=== PATIENT | female | born 1990 | race Caucasian/White ===

== ENCOUNTER → 2019-09-08 13:58 | Outpatient (CLI) | payer OTHER, SELFPAY ==
--- NOTE | 2019-09-08 | DI.ECHO.S_ITS ---
[facility]---------+ [facility] +---------+ : : [address] : [address] : : : : [id number] : : : : Phone: [phone] +---------+ Echocardiogram Report + + :Name: RONNIE ALEXIS Study Date: 09/08/2019 Height: 73 in : :[facility] Weight: 172 lb : : Gender: Female BSA: 2.0 m2 : :: 1990 Age: 29 yrs BP: 122/76 mmHg: :Reason For Study: MURMUR : : Performed By: Tem Staff : :Referring: LI LINARES D : + + Interpretation Summary 1) Normal left ventricular size, thickness, wall motion, and systolic function (EF 60-65%). 2) Normal right ventricular size and function. 3) Aortic valve is opening well but it is not adequately visualized to rule out bicuspid aortic valve. No valvular stenosis or regurgitation present. Consider repeat Echo in 5 years. 4) No prior Echo available for comparison. Procedure: A two-dimensional transthoracic echocardiogram with color flow and Doppler was performed. The study quality was technically adequate. There is no prior echocardiogram noted for this patient. The patient was in normal sinus rhythm during the exam. Left Ventricle: The left ventricle is normal in size. There is normal left ventricular wall thickness. Left ventricular systolic function is normal. The ejection fraction is estimated to be 55-60%. Left ventricular wall motion is normal. Right Ventricle: The right ventricle is normal in size and function. Atria: The left atrial size is normal. Right atrial size is normal. The interatrial septum is intact with no evidence for an atrial septal defect. Mitral Valve: The mitral valve leaflets appear normal. There is no evidence of stenosis, fluttering, or prolapse. There is mild mitral regurgitation. Aortic Valve: The aortic valve opens well. The aortic valve is grossly normal. There is no aortic valve stenosis. No aortic regurgitation is present. Tricuspid Valve: The tricuspid valve is normal in structure and function. There is trace tricuspid regurgitation. The right ventricular systolic pressure is estimated to be at least 23 mmHg based on an estimated right atrial pressure of 8 mm Hg. Pulmonic Valve: The pulmonic valve is normal in structure and function. There is trace pulmonic regurgitation. Great Vessels: The aortic root is normal size. The dimensions of the ascending aorta are normal. The pulmonary artery is normal size. The IVC is dilated (diameter is greater than 2.1 cm) yet it collapses greater than 50% with a sniff. This suggests a right atrial pressure of 8 mm Hg. Pericardium/ Pleura There is no pericardial effusion. There is no pleural effusion. MMode/2D Measurements & Calculations LVIDd: 4.5 cm LVOT diam: 2.0 cm LVIDs: 3.2 cm Ao root diam: 3.0 cm FS: 28.4 % Aortic Jxn: 2.6 cm EPSS: 0.43 cm IVSd: 0.78 cm LVPWd: 0.82 cm LV whitney. diameter/BSA (cm/m^2): 2.2 LV sys. diameter/BSA (cm/m^2): 1.6 LA A2 area: 15.1 cm2 RA long axis: 3.2 cm LA A4 area: 14.0 cm2 RA area: 6.1 cm2 LA length (vol): 4.4 cm RA vol: 10.1 ml LA vol: 40.9 ml RA : 5.0 ml/m2 LA vol index: 20.3 ml/m2 TAPSE: 2.5 cm Doppler Measurements & Calculations Ao V2 max: 165.3 cm/sec LVOT Max Alon: 98.0 cm/sec Ao V2 mean: 108.9 cm/sec LV V1 max P.8 mmHg Ao max P.9 mmHg LV V1 VTI: 23.4 cm Ao mean P.7 mmHg DANDRE(I,D): 2.0 cm2 Ao V2 VTI: 36.2 cm DANDRE(V,D): 1.9 cm2 sev ratio: 0.64 DANDRE indexed to BSA (cm^2/m^2): 1.00 MV E max alon: 99.5 cm/sec TR max alon: 190.4 cm/sec MV A max alon: 44.9 cm/sec TR max P.5 mmHg MV E/A: 2.2 PA V2 max: 80.8 cm/sec Med Peak E' Alon: 12.3 cm/sec PA V2 mean: 59.9 cm/sec E/E' med: 8.1 PA mean P.6 mmHg Lat Peak E' Alon: 16.2 cm/sec PA Accel Time: 0.17 sec E/E' lat: 6.1 E/e' average: 7.1 MV dec time: 0.16 sec SV(LVOT): 73.1 ml Reading Physician:03:10 PM
== END ==
PROVIDERS: PCP Family Medicine; Visit Provider Family Medicine
DX: I34.0 Nonrheumatic mitral (valve) insufficiency (principal); R01.1 Cardiac murmur, unspecified
CPT/HCPCS: 93306

== ENCOUNTER → 2021-07-18 10:46 | Outpatient (CLI) | payer OTHER, MEDICAID, SELFPAY ==
[2021-07-18 18:55] LABS: Add Manual Diff / Slide Review NO; Basophils Absolute Auto 0 /uL (0-100); Basophils Percent Auto 0.4 % (0-2); Eosinophils Absolute Auto 200 /uL (0-450); Eosinophils Percent Auto 2.6 % (2-4); Hematocrit 42.3 % (36-46); Lymphocytes Absolute Auto 2300 /uL (1100-4500); Lymphocytes Percent Auto 35.2 % (25-40); Mean Corpuscular HGB Conc 33.2 % (30-36); Mean Corpuscular Hemoglobin 31.1 PG (26-34); Mean Corpuscular Volume 93.8 fL (80-100); Monocytes Absolute Auto 700 /uL (0-900); Monocytes Percent Auto 10.6 % (3-14); Neutrophils Absolute Auto 3300 /uL (1500-7000); Neutrophils Percent Auto 51.2 % (50-75); Platelet Count 228 X10^3/uL (150-400); Red Blood Cell Count 4.51 X10^6/uL (4.0-5.2); Red Cell Distribution Width 12.6 % (11.6-14.8); White Blood Cell Count 6.4 X10^3/uL (4.5-11.0)
[2021-07-18 19:00] LABS: Alanine Aminotransferase 20 IU/L (<35); Albumin 4.7 g/dL (3.5-5.0); Albumin Globulin Ratio 1.6 (1.0-2.8); Alkaline Phosphatase 52 U/L (38-126); Aspartate Aminotransferase 25 IU/L (14-36); BUN Creatinine Ratio 29.2 (6-22); Bilirubin Total 0.4 mg/dL (0.2-1.3); Blood Urea Nitrogen 19 mg/dL (7-17); Carbon Dioxide 27 mmol/L (22-32); Chloride 102 mmol/L (98-107); Estimated Glomerular Filt Rate > 60.0 mL/min (>60); Globulin 2.9 g/dL (1.7-4.1); Glucose 82 mg/dL (70-100); HEMOLYSIS < 15 (0-50); Potassium 4.6 mmol/L (3.4-5.1); Sodium 137 mmol/L (137-145); Total Protein 7.6 g/dL (6.3-8.2)
[2021-07-18 19:06] LABS: Rheumatoid Factor < 8.6 IU/mL (<12.0)
[2021-07-18 19:37] LABS: Erythrocyte Sedimentation Rate 5 MM/HR (0-20)
[2021-07-18 19:49] LABS: TSH w/ Reflex to FT4 1.92 uIU/mL (0.47-4.68)
[2021-07-20 18:37] LABS: ANA Screen, IFA Negative (.)
[2021-07-21 21:07] LABS: CCP Antibodies IgG/IgA 6 units (0-19)
== END ==
PROVIDERS: PCP Family Medicine; Visit Provider Physician Assistant
DX: M06.9 Rheumatoid arthritis, unspecified (principal); K92.1 Melena; R53.83 Other fatigue
CPT/HCPCS: 80053; 84443; 85025; 85651; 86038; 86200; 86430

== ENCOUNTER → 2022-04-10 15:41 | Outpatient (CLI) | payer OTHER, SELFPAY | PROVIDERS: PCP Family Medicine; Visit Provider Family Medicine | DX: R30.0 Dysuria (principal) | CPT/HCPCS: 81002; 87077; 87086; 87147 ==

== ENCOUNTER → 2022-07-24 09:23 | Outpatient (CLI) | payer OTHER, SELFPAY ==
[2022-07-24 20:28] LABS: Hepatitis B Surface Antigen NEGATIVE s/c (NEGATIVE)
[2022-07-24 20:38] LABS: HIV 1 & 2 Ab/Ag 4th Gen Combo NEGATIVE (NEGATIVE)
[2022-07-25 19:26] LABS: Urine N gonorrhoeae NOT DETECTED
[2022-07-25 19:32] LABS: Urine Chlamydia NOT DETECTED
[2022-07-26 03:32] LABS: HSV 2 IGG AB < 0.91 index (0.00-0.90); HSV1IGG < 0.91 index (0.00-0.90)
[2022-07-26 09:27] LABS: RPR Screen Non Reactive (Non Reactive)
== END ==
PROVIDERS: PCP Family Medicine; Visit Provider Physician Assistant
DX: Z11.3 Encounter for screening for infections with a predominantly sexual mode of transmission (principal)
CPT/HCPCS: 86592; 86694; 86695; 86696; 87340; 87389; 87491; 87591

== ENCOUNTER → 2022-11-09 09:45 | Outpatient (CLI) | payer OTHER, SELFPAY | PROVIDERS: PCP Family Medicine; Visit Provider Family Medicine | DX: R10.2 Pelvic and perineal pain (principal); R39.89 Other symptoms and signs involving the genitourinary system; Z11.3 Encounter for screening for infections with a predominantly sexual mode of transmission | CPT/HCPCS: 87077; 87086; 87186 ==

== ENCOUNTER → 2023-06-25 08:57 | Outpatient (CLI) | payer OTHER, SELFPAY | PROVIDERS: PCP Family Medicine; Visit Provider Physician Assistant | DX: R39.89 Other symptoms and signs involving the genitourinary system (principal) | CPT/HCPCS: 87086 ==

== ENCOUNTER → 2024-02-19 12:39 | Outpatient (CLI) | payer OTHER, SELFPAY | PROVIDERS: PCP Family Medicine; Visit Provider Physician Assistant Medical | DX: R10.31 Right lower quadrant pain (principal); R10.32 Left lower quadrant pain | CPT/HCPCS: 87077; 87086 ==